=== PATIENT | male | born 1950 | race Caucasian/White ===

== ENCOUNTER 2022-03-14 01:56 | Day surgery (SDC) | payer OTHER, SELFPAY ==
[2022-03-03 14:10] VITALS: BMI 25.1
[2022-03-14 10:15] VITALS: BP 142/84; PULSE 85; RESP 18; TEMP 36.6; O2SAT 97; BMI 25.1
--- NOTE | 2022-03-14 10:29 | P.HP_ITS ---
History of Present Illness History of Present Illness Consent: Risks, benefits, and alternatives have been discussed and questions answered. Patient agrees to proceed with procedure. Chief complaint: hx colon polyps Narrative: Armando Prasad Jr. is a 71 year old male Presents for follow-up screening colonoscopy. Patient has a history of adenomatous colon polyp removed from the colon 2016. He had previous polyp in 2007 as well. His family history is non contributory. Patient reports his current weight appetite and bowel movements are normal. Patient denies abdominal pain. He has had no bleeding. Patient reports a myocardial infarction 2 years ago for he was on anticoagulation which is now been discontinued. [facility] Social History Social History Smoking status: Former smoker Tobacco type: cigarettes Alcohol intake: current Drinks per week: 6 Substance use type: does not use Living arrangements: with family Spiritual care concerns: No Meds Home Medications and Allergies Home Medications Medication Instructions Recorded Confirmed Type aspirin 81 mg tablet 81 mg PO DAILY 03/03/22 03/03/22 History atorvastatin 40 mg tablet 40 mg PO DAILY 03/03/22 03/03/22 History lisinopril 10 1 tablet PO DAILY 03/03/22 03/03/22 History mg-hydrochlorothiazide 12.5 mg tablet metoprolol succinate 25 mg 25 mg PO DAILY 03/03/22 03/03/22 History tablet,extended release 24 hr pantoprazole 20 mg tablet,delayed 20 mg PO DAILY 03/03/22 03/03/22 History release sodium,potassium,mag sulfates 17.5 See Rx Instructions PO .COMPLEX 03/03/22 Rx gram-3.13 gram-1.6 gram oral soln #354 mL (Suprep Bowel Prep Kit) tadalafil 10 mg tablet 10 mg PO DAILY PRN erectily 03/03/22 03/03/22 History dysfunction Allergies Allergy/AdvReac Type Severity Reaction Status Date / Time No Known Allergies Allergy Unverified 03/03/22 14:10 Vital Signs Vital Signs - 24 hr 03/14/22 10:15 Temperature 97.8 F Pulse Rate 85 Respiratory Rate 18 Blood Pressure 142/84 H Pulse Oximetry 97 Oxygen Delivery Room Air Exam Narrative: Physical exam reveals patient be alert. Vital signs stable. HEENT exam is unremarkable. Patient is anicteric. Lungs are clear to auscultation and percussion. Heart is without murmur or extra sounds. Abdomen bowel sounds are present soft nontender with no organomegaly. Digital external rectal exam is normal. Assessment and Plan Assessment and plan (1) History of colon polyps: Code(s): Z86.010 - Personal history of colonic polyps Status: Acute Assessment and Plan: Patient has a prior history of colon polyps. For this reason screening colonoscopy performed today. Consider this at 5 year intervals.
[2022-03-14] MEDS: LACTATED RINGERS 1,000 ML 150 ML IV CONT (10:40)
--- NOTE | 2022-03-14 10:55 | WPDANESEPPF ---
Anes - Initial Pre Proc Eval Procedure: Operation Date: 03/14/22 11:30 Proposed Procedures p Screening Colonoscopy - Gilbert Hatch MD Date/Time: 03/14/22 10:55 Surgeon: Gilbert Hatch MD Pre Op Diagnosis: hx colon polyps Patient Data Age: 71 Gender: M Height: 1.73 m Weight: 75 kg Last Vital Signs Temp 97.8 F 03/14/22 10:15 Pulse 85 03/14/22 10:15 Resp 18 03/14/22 10:15 BP 142/84 H 03/14/22 10:15 Pulse Ox 97 03/14/22 10:15 O2 Del Method Room Air 03/14/22 10:15 Allergies Allergy/AdvReac Type Severity Reaction Status Date / Time No Known Allergies Allergy Unverified 03/03/22 14:10 Home Medications Medication Instructions Recorded Confirmed Type aspirin 81 mg tablet 81 mg PO DAILY 03/03/22 03/03/22 History atorvastatin 40 mg tablet 40 mg PO DAILY 03/03/22 03/03/22 History lisinopril 10 1 tablet PO DAILY 03/03/22 03/03/22 History mg-hydrochlorothiazide 12.5 mg tablet metoprolol succinate 25 mg 25 mg PO DAILY 03/03/22 03/03/22 History tablet,extended release 24 hr pantoprazole 20 mg tablet,delayed 20 mg PO DAILY 03/03/22 03/03/22 History release sodium,potassium,mag sulfates 17.5 See Rx Instructions PO .COMPLEX 03/03/22 Rx gram-3.13 gram-1.6 gram oral soln #354 mL (Suprep Bowel Prep Kit) tadalafil 10 mg tablet 10 mg PO DAILY PRN erectily 03/03/22 03/03/22 History dysfunction Patient hx anesthesia problems: none Family hx anesthesia problems: none Results Review: All pre-operative results and documents have been reviewed as part of the pre-operative evaluation. [facility] Social History Social History Smoking status: Former smoker Tobacco type: cigarettes Alcohol intake: current Drinks per week: 6 Substance use type: does not use Living arrangements: with family Spiritual care concerns: No Anes - Eval Final PreProcedure Day of Procedure 03/14/22 10:55 Patient weight: normal Heart: regular rate and rhythm Lungs: clear to auscultation Airway: Mallampati scale class II Neurological: alert and oriented Last oral intake: >/= 8 hours ASA classification: III Emergent: no Anesthetic plan: proceed Anesthesia type and monitoring: general GIVS and standard monitoring Results Review: All pre-operative results and documents have been reviewed as part of the pre-operative evaluation. Informed Consent: The patient's anesthetic plan and its attendant risks and benefits were discussed with the patient/family/POA. Questions were solicited and answers provided to the satisfaction of the patient/family/POA.
[2022-03-14 11:11] VITALS: BP 123/70; PULSE 73; RESP 23; O2SAT 97
[2022-03-14 11:21] VITALS: BP 117/71; PULSE 74; RESP 23; O2SAT 98
[2022-03-14 11:31] VITALS: BP 122/81; PULSE 67; RESP 23; O2SAT 98
== END 2022-03-14 11:40 | disposition home or self-care (01) ==
PROVIDERS: PCP Family Medicine; Visit Provider Internal Medicine Gastroenterology
PROC: 0DJD8ZZ Inspection of Lower Intestinal Tract, Via Natural or Artificial Opening Endoscopic (ICD-10-PCS; CPT 45378; principal; 2022-03-14 11:30)
DX: Z12.11 Encounter for screening for malignant neoplasm of colon (principal); K57.30 Diverticulosis of large intestine without perforation or abscess without bleeding; K64.8 Other hemorrhoids; K64.4 Residual hemorrhoidal skin tags; Z86.010 Personal history of colon polyps; Z79.82 Long term (current) use of aspirin; Z87.891 Personal history of nicotine dependence
CPT/HCPCS: G0105; J2704; J7120

== ENCOUNTER 2022-05-04 10:29 | Emergency (ER) | payer OTHER, SELFPAY ==
--- NOTE | 2022-05-04 10:38 | ED.WOUNDLAC ---
HPI - Wound/Laceration General Chief Complaint: Wound/Laceration Stated Complaint: cut left 3rd finger Time Seen by Provider: 05/04/22 10:38 Source: patient Mode of arrival: ambulatory Limitations: no limitations History of Present Illness HPI narrative: Armando is a 71-year-old male patient presenting to the clinic today with complaints of a laceration to his left 3rd finger. He reports he cut his finger on a door handle last night around 8:00 pm. when he slipped. Tetanus status was 7 years ago. Bleeding controlled Related Data Home Medications Medication Instructions Recorded Confirmed aspirin 81 mg tablet 81 mg PO DAILY 03/03/22 05/04/22 atorvastatin 40 mg tablet 40 mg PO DAILY 03/03/22 05/04/22 lisinopril 10 1 tablet PO DAILY 03/03/22 05/04/22 mg-hydrochlorothiazide 12.5 mg tablet metoprolol succinate 25 mg 25 mg PO DAILY 03/03/22 05/04/22 tablet,extended release 24 hr Allergies Allergy/AdvReac Type Severity Reaction Status Date / Time No Known Allergies Allergy Verified 05/04/22 10:38 Review of Systems Review of Systems: Pertinent positives per HPI. Patient denies any fever, chills, rash, headache, visual changes, dizziness, cough, runny nose, sore throat, shortness of breath, chest pain, palpitations, nausea, vomiting, diarrhea, constipation, abdominal pain, or any urinary issues. [facility] Social History Social History Smoking status: Former smoker Tobacco type: cigarettes Alcohol intake: current Drinks per week: 6 Substance use type: does not use Living arrangements: with family Spiritual care concerns: No Comments At the time of my signature, I reviewed and agree with the nursing past medical, surgical, social, and family history. There is no relevant family history pertinent to the patient complaint. Exam Narrative: General: Well-developed, well nourished, in no apparent distress Head: Normocephalic, atraumatic. Cardio: Regular rate and rhythm, s1 and s2 normal, no murmur appreciated. Resp: Clear to auscultation bilaterally, no rhonchi, rales, wheezing or rubs. Integumentary: [place], warm, and dry, partial skin avulsion to the volar aspect of the left 3rd finger. Bleeding controlled Course Course Emergency Course: Portions of this record may have been created with voice recognition software. Level of Care: Express Care Visit Vital Signs Vital signs: Vital Signs Temperature 36.2 C L 05/04/22 10:40 Pulse Rate 99 05/04/22 10:40 Respiratory Rate 16 05/04/22 10:40 Blood Pressure 155/92 H 05/04/22 10:40 Pulse Oximetry 99 05/04/22 10:40 Oxygen Delivery Room Air 05/04/22 10:40 Temperature 36.2 C L 05/04/22 10:40 Pulse Rate 99 05/04/22 10:40 Respiratory Rate 16 05/04/22 10:40 Blood Pressure 155/92 H 05/04/22 10:40 Pulse Oximetry 99 05/04/22 10:40 Oxygen Delivery Room Air 05/04/22 10:40 Vital signs reviewed Procedures Other Procedure Procedure 1: Other Procedure: Verbal consent obtained for wound debridement and Surgicel placement of a skin avulsion to the left volar aspect of the 3rd finger. skin cap was removed from the wound and skin was cut around the wound and removed and patient tolerated well. Cleanse wound with primaderm and 2 mL of lidocaine was used to numb the wound bed for Surgicel placement. Surgicel was placed over the wound and 4 x 4 gauze and tube gauze was used to create a pressure dressing over the wound. Patient tolerated procedure well. MDM - Wound/Laceration MDM Narrative Medical decision making narrative: At the time of visit patient is resting comfortably on the exam table. Wound debridement performed in the clinic and Surgicel dressing was applied to the patient's skin avulsion. Supportive measures were discussed with the patient he voiced understanding discharge instructions and agrees to treatment plan. Tetanus shot was
[2022-05-04 10:40] VITALS: BP 155/92; PULSE 99; RESP 16; TEMP 36.2; O2SAT 99
[2022-05-04] MEDS: TETANUS,DIPHTHERIA,AC PERTUSSIS ADULT (0.5 ML) BOOSTRIX IM (11:29)
== END 2022-05-04 11:41 | disposition home or self-care (01) ==
PROVIDERS: Emergency Provider Nurse Practitioner Family; PCP Family Medicine
DX: S61.203A Unspecified open wound of left middle finger without damage to nail, initial encounter (principal); W45.8XXA Other foreign body or object entering through skin, initial encounter; Z23 Encounter for immunization; Z87.891 Personal history of nicotine dependence; Z79.82 Long term (current) use of aspirin
CPT/HCPCS: 11042; 90471; 90715; 99212; G0463